=== PATIENT | male | born 1995 | race Caucasian/White ===

== ENCOUNTER 2017-07-16 22:10 | Emergency (ER) | payer OTHER ==
[~2017-07-16] VITALS: Ht 195.6 cm; Wt 87.0 kg
[2017-07-16 22:58] LABS: HEMATOCRIT 49.9 % (38.0-50.0); MCH 28.5 PG (29.0-34.0); MCHC 34.9 G/DL (30.0-36.0); MCV 81.7 FL (86-99); MEAN PLAT.VOLUME 8.7 uM^3 (9.0-12.4); PLATELET COUNT 302 K/uL (156-360); RBC DIS.WIDTH-CV 12.8 % (11.8-14.6); RBC DIS.WIDTH-SD 37.8 % (39-53); RED BLOOD COUNT 6.11 M/uL (4.00-5.50); WHITE BLOOD COUNT 10.7 K/uL (4.1-10.2)
[2017-07-16 23:07] LABS: CHLORIDE 105 mEq/L (99-109); POTASSIUM 4.3 mEq/L (3.7-5.4); SODIUM 141 mEq/L (136-147)
[2017-07-16 23:09] LABS: GLUCOSE 80 mg/dL (70-99)
[2017-07-16 23:10] LABS: ANION GAP 13 MEQ/L (2-14)
[2017-07-16 23:13] LABS: UREA NITROGEN (BUN) 21 mg/dL (9-23)
[2017-07-16 23:26] LABS: GFR ESTIMATE (CALCULATED) > 59 mL/min/
[2017-07-17] MEDS ORDERED: PROVENTIL,2.5 MG/3 M IH (02:10)
[2017-07-17 02:30] VITALS: BP 92/48
== END 2017-07-17 02:30 | disposition home or self-care (01) ==
LOC: EME 22:10
DX: J45.901 Unspecified asthma with (acute) exacerbation (principal); Z87.891 Personal history of nicotine dependence
CPT/HCPCS: 71020; 80048; 85027; 94640; 94640 76; 99281; 99285; J1100

== ENCOUNTER 2017-08-17 21:02 | Emergency (ER) | payer OTHER ==
[~2017-08-17] VITALS: Ht 195.6 cm; Wt 81.8 kg
[~2017-08-17 21:02] MED LIST: PROVENTIL,2.5 MG/3 M IH
[2017-08-17] MEDS ORDERED: MEDROL DOSEPAK4 MG PO (22:43)
[2017-08-17] MEDS ORDERED: PROVENTIL,2.5 MG/3 M IH (22:43)
[2017-08-17 23:10] VITALS: BP 101/68
== END 2017-08-17 23:14 | disposition home or self-care (01) ==
LOC: EME 21:02
DX: J45.901 Unspecified asthma with (acute) exacerbation (principal); J06.9 Acute upper respiratory infection, unspecified; F84.5 Asperger's syndrome; Z72.0 Tobacco use
CPT/HCPCS: 71020; 94640; 99281; 99283; J7512